=== PATIENT | male | born 1940 ===

== ENCOUNTER 2019-12-04 21:28 | Emergency (ER) | payer OTHER ==
[~2019-12-04] VITALS: Ht 182.9 cm; Wt 100.7 kg
[2019-12-04] MEDS ORDERED: CELEXA40 MG (21:54)
[2019-12-04] MEDS ORDERED: LIPITOR40 M1 (21:54)
[2019-12-04] MEDS ORDERED: RYTHMOL SR225 MG (21:54)
[2019-12-04] MEDS ORDERED: ELIQUIS2.5 MG (21:54)
[2019-12-04] MEDS ORDERED: CARVEDILOL25 MG (21:54)
[2019-12-04] MEDS ORDERED: COZAAR100 MG (21:55)
[2019-12-04] MEDS ORDERED: PROTONIX40 M1 (21:55)
[2019-12-04] MEDS ORDERED: VITAMIN C100 MG (21:55)
[2019-12-04] MEDS ORDERED: LAMICTAL150 M1 (21:55)
[2019-12-04] MEDS ORDERED: LASIX40 MG (21:55)
[2019-12-04] MEDS ORDERED: ISOSORBIDE MONO60 MG (21:55)
[2019-12-04] MEDS ORDERED: FEOSOL325 MG (21:56)
[2019-12-04] MEDS ORDERED: PROAIR HFA8.5 GM (21:56)
[2019-12-04] MEDS ORDERED: UCERIS9 MG (21:56)
[2019-12-05] MEDS ORDERED: ZYNCOF 400-201 EACH PO (11:53)
[2019-12-05] MEDS ORDERED: XOPENEX CO1.25 MG/0. IH (11:53)
[2019-12-05] MEDS ORDERED: TESSALON PERLE100 M1 PO (11:53)
[2019-12-05] MEDS ORDERED: IPRATROPIU0.2 MG/1 M IH (11:53)
[2019-12-05] MEDS ORDERED: MONODOX100 MG PO (11:53)
== END 2019-12-05 12:21 | disposition home or self-care (01) ==
LOC: ER 21:28
DX: J44.1 Chronic obstructive pulmonary disease with (acute) exacerbation (principal); J45.998 Other asthma; G47.33 Obstructive sleep apnea (adult) (pediatric); E66.2 Morbid (severe) obesity with alveolar hypoventilation